=== PATIENT | female | born 1980 | race Two or more races ===

== ENCOUNTER 2024-12-28 17:12 | Emergency (ER) | payer OTHER ==
[~2024-12-28] VITALS: Ht 152.4 cm; Wt 49.9 kg
[2024-12-28] MEDS ORDERED: PROTONIX40 M1 PO (17:55)
[2024-12-28] MEDS ORDERED: ACETAMINOPHEN 160MG/5 ML BLIST.PACK PO ONE ×3 (17:59→19:00)
[2024-12-28] MEDS ORDERED: GUAIFENESIN/DEXTROMETHORPHAN 10ML BLIST.PACK PO ONE ×2 (19:00→19:01)
[2024-12-28 19:33] LABS: HEMATOCRIT 41.9 % (36.0-45.00); HEMOGLOBIN 14.8 g/dL (12.0-15.00); MEAN CORPUSCULAR HEMOGLOBIN 32.5 pg (27.00-32.0); MEAN CORPUSCULAR HGB CONC 35.3 g/dl (32.0-36.0); RED BLOOD COUNT 4.55 M/uL (4.00-6.00); RED CELL DISTRIBUTION WIDTH 13.5 % (11.5-14.5)
[2024-12-28 19:35] LABS: PH,URINE 5.5 (5.0-8.0); URINE APPEARANCE Clear; URINE BILIRRUBIN Negative (NEGATIVE); URINE BLOOD Large; URINE COLOR Yellow; URINE GLUCOSE Negative (NEGATIVE); URINE LEUKOCYTE Negative; URINE NITRATE Negative; URINE PROTEIN Negative (NEGATIVE)
[2024-12-28 19:39] LABS: URINE BACTERIA 675.4 uL (0.0-1933); URINE EPITHELIAL CELLS 8.2 uL (0.0-38.8); URINE RBC 66.1 uL (0.0-20.8); URINE WBC 4.1 uL (0.0-23.2)
[2024-12-28 19:41] LABS: PLATELET COUNT 125 K/uL (150-450)
[2024-12-28 19:44] LABS: URINE KETONE 40 (NEGATIVE)
[2024-12-28] MEDS ORDERED: OSELTAMIVIR PHOSPHATE 75 MG CAPSULE PO ONE ×2 (20:00→20:51)
[2024-12-28 20:12] LABS: ALBUMIN 3.6 gm/dL (3.4-5.0); BILIRUBIN TOTAL 0.55 mg/dL (0.3-1.2); CALCIUM 9.1 mg/dL (8.5-10.1); CREATININE SERUM 0.86 mg/dL (0.55-1.02); GFR 71.35; GLOBULINA 3.8 G/DL (2.4-3.5); POTASSIUM 3.93 mEq/L (3.5-5.1); TOTAL PROTEIN 7.4 gm/dL (6.4-8.2)
[2024-12-28] MEDS ORDERED: OSEL75CA PO (21:20)
[2024-12-28] MEDS ORDERED: QC TUSSIN DM 2237 ML PO (21:20)
[2024-12-28] MEDS ORDERED: IPRATROPIU0.2 MG/1 M IH (21:20)
[2024-12-28] MEDS ORDERED: ALBUTEROL1.25 MG/3 IH (21:20)
== END 2024-12-28 21:46 ==
LOC: ER 17:14
PROVIDERS: Preventive Medicine Public Health & General Preventive Medicine
DX: J10.1 Influenza due to other identified influenza virus with other respiratory manifestations (principal); R50.9 Fever, unspecified; R31.9 Hematuria, unspecified; Z20.822 Contact with and (suspected) exposure to COVID-19

== ENCOUNTER 2025-07-13 23:14 | Emergency (ER) | payer OTHER ==
[~2025-07-13] VITALS: Ht 152.4 cm; Wt 49.9 kg
[~2025-07-13 23:14] MED LIST: ALBUTEROL1.25 MG/3 IH; IPRATROPIU0.2 MG/1 M IH; OSEL75CA PO; PROTONIX40 M1 PO; QC TUSSIN DM 2237 ML PO
[2025-07-14 04:13] LABS: BASO % 0.3 % (0.1-1.2); EOS # 0.01 (0.04-0.54); EOS % 0.2 % (0.7-7.0); LYMPH # 1.46 (1.18-3.74); LYMPH % 22.0 % (19.3-53.1); MEAN PLATELET VOLUME 10.80 fl (9.4-12.4); MONO # 0.51 (0.24-0.82); MONO % 7.7 % (4.7-12.5); NEUT # 4.62 (1.56-6.13); NEUT % 69.3 % (34.0-71.1); RED CELL DISTRIBUTION WIDTH 12.7 % (11.6-14.4)
[2025-07-14 05:00] LABS: BUN CREA RATIO 19.0 (7.0-25.0); CREATININE SERUM 0.86 mg/dL (0.55-1.02); GFR 71.04; GLUCOSE FASTING 89.0 mg/dL (65-100); OSMOLALITY SERUM 282.0 MOSM/KG (275-295)
[2025-07-14 05:01] LABS: ALT/SGPT 16.0 U/L (12-78); AST/SGOT 14.0 U/L (15-37); BILIRUBIN TOTAL 0.44 mg/dL (0.3-1.2); GLOBULINA 3.4 G/DL (2.4-3.5)
[2025-07-14 05:44] LABS: COCAINE NEGATIVE (NEGATIVE); METHADONE NEGATIVE (NEGATIVE); OPIATES NEGATIVE (NEGATIVE); THC ( Cannabinoids) POSITIVE (NEGATIVE)
== END 2025-07-14 06:08 | disposition home or self-care (01) ==
LOC: ER 23:14
DX: R42 Dizziness and giddiness (principal)